=== PATIENT | female | born 1965 | race Caucasian/White ===

== ENCOUNTER 2023-11-07 06:18 | Day surgery (SDC) | payer OTHER ==
[2023-11-07] MEDS ORDERED: fentaNYL 50 MCG/ML SDV ONE (07:02)
[2023-11-07] MEDS ORDERED: Propofol 200 MG/20 ML SDV ONE (07:02)
[2023-11-07] MEDS ORDERED: Midazolam 1 MG/ML 2 ML SDV ONE (07:02)
[2023-11-07] MEDS: Sodium Chloride 0.9% 1,000 ML IV SCH (07:23)
== END 2023-11-07 09:29 | disposition home or self-care (01) ==
LOC: JP.SDS 06:18
PROVIDERS: ATTEND Surgery
DX: Z12.11 Encounter for screening for malignant neoplasm of colon (principal); K63.5 Polyp of colon; K57.30 Diverticulosis of large intestine without perforation or abscess without bleeding; I10 Essential (primary) hypertension; E11.9 Type 2 diabetes mellitus without complications; Z88.5 Allergy status to narcotic agent
CPT/HCPCS: 45380; 88305; J2250; J2704; J3010; J7030